=== PATIENT | female | born 2005 | race Caucasian/White ===

== ENCOUNTER 2025-04-07 13:04 | Emergency (ER) | payer SELFPAY ==
[2025-04-07 13:12] VITALS: BP 108/65
[2025-04-07 13:40] LABS: Hematocrit 38.8 % (37.0-47.0); Hemoglobin 13.8 g/dL (12.0-16.0); Mean Corp Hgb Conc. 35.6 g/dL (33.0-37.0); Mean Corpuscular Volume 88.8 fL (81.0-99.0); Nucleated Red Blood Cells % 0 %; Platelet Count 289 10^3/uL (130-400); Red Cell Dist. Width 12.2 % (11.5-14.5)
[2025-04-07 13:55] LABS: ALT (SGPT) 14 U/L (0-35); AST (SGOT) 19 U/L (14-36); Albumin 4.9 g/dl (3.5-5.0); Alkaline Phosphatase 58 U/L (38-126); Blood Urea Nitrogen 15 mg/dl (7-17); Calcium 10.2 mg/dl (8.4-10.2); Carbon Dioxide 22 mmol/L (22-30); Chloride 106 mmol/L (98-107); Glucose 110 mg/dl (70-99); Lipase 68 U/L (23-300); Potassium 3.9 mmol/L (3.5-5.1); Sodium 138 mmol/L (135-145); Total Protein 8.6 g/dl (6.3-8.2); eGFR > 60.00
[2025-04-07 13:56] LABS: HCG, Serum Qualitative Screen Negative
[2025-04-07 17:20] VITALS: BP 118/79
--- NOTE | 2025-04-07 19:21 | ED.GENMED ---
History of Present Illness
General
Chief Complaint: Abdominal Pain
Time Seen by Provider: 04/07/25 16:41
History of Present Illness
History of Present Illness:
19-year-old female presents to the emergency department for evaluation of periumbilical abdominal pain that began earlier in the day and caused severe pain resulting in a syncopal event with vomiting and diarrhea. She states that she gets these
pain episodes on a frequent basis nearly once a week without clear provoking or palliating factors. Started contraceptives which is also not providing. No obvious provoking or palliating foods. No fevers or chills. No prior abdominal surgical
history. Denies cannabis use
Review of Systems
Review of Systems
Allergies reviewed?: Yes
All Other Systems: ROS reviewed and negative except as documented in HPI and ROS
Phy Exam
Physical Exam
Physical Exam:
GEN: Well appearing, NAD, WDWN
HEENT: Oral mucosa moist, no scleral icterus
Cardiac: Regular rate
Lung: No respiratory distress, no tachypnea
Abdomen: Soft, moderate left lower quadrant and suprapubic tenderness, no rigidity
MSK: No gross deformity or injuries
Skin: Good color, no pallor or jaundice, no rashes
Neuro: AO x3, moves all extremities freely
Psych: Calm, cooperative
Course
Orders/Labs/Results
Orders:
Orders
04/07/25 13:16
Electrocardiogram (*1) Urgent
Reason for Study: Vertigo / Dizzy
EKG- Treatment ONCE
Test Result ONCE
04/07/25 13:27
Complete Blood Count/With Diff Urgent
Comprehensive Metabolic Panel Urgent
HCG, Serum Qualitative Screen Urgent
Lipase Urgent
04/07/25 17:02
US Pelvis Only (non-obstetric) Urgent
Reason For Exam: lower abd pain/syncope
Abnormal Lab Results
04/07/25
13:27
WBC 15.6 H 10^3/uL
(4.8-10.8)
MCH 31.6 H pg
(27.0-31.0)
Abs Immat Gran (auto) 0.1 H 10^3/uL
(0-0.05)
Absolute Neuts (auto) 13.4 H 10^3/uL
(1.4-6.5)
Absolute Lymphs (auto) 1.0 L 10^3/uL
(1.2-3.4)
Absolute Monos (auto) 1.0 H 10^3/uL
(0.1-0.6)
Neutrophils % 86.2 H %
(42.2-75.2)
Lymphocytes % 6.2 L %
(20.5-51.1)
Glucose 110 H mg/dl
(70-99)
Total Protein 8.6 H g/dl
(6.3-8.2)
04/07/25 13:27
04/07/25 13:27
Vital Signs
Initial and Last Documented VS:
Initial Vital Signs
Temp Pulse Resp BP Pulse Ox
98.8 F 69 18 108/65 98
04/07/25 13:12 04/07/25 13:12 04/07/25 13:12 04/07/25 13:12 04/07/25 13:12
Last Documented Vital Signs
Temp Pulse Resp BP Pulse Ox
98.8 F 70 13 118/79 97
04/07/25 13:12 04/07/25 17:20 04/07/25 17:20 04/07/25 17:20 04/07/25 19:22
MDM/Problems Addressed
MDM/Problems Addressed:
Patient's labs unremarkable, due to lower abdominal pain on exam and syncopal event the patient was sent for ultrasound to rule out ruptured ovarian cyst or ovarian torsion and this was reassuring. Given the frequent recurrence of her symptoms this
could represent an abdominal migraine, doubt vascular pathology such as MALS given the lack of clear provoking factors. Will recommend outpatient GI follow-up
*Pulse Oximetry
SaO2: 97
Oxygen Mode of Delivery: Room air
Patient hypoxic: no
*Critical Care Note
Total Time (30-74mins, 75-104mins- exclusive of procedures): Not Applicable
ED Attending Note
-
Portions of this chart may have been created with voice recognition software.� Occasional wrong word or��sound alike� substitutions may have occurred due to the inherent limitations of voice recognition software.
Discharge Plan
Departure
Patient Disposition: Home (Routine Discharge)
Date of Disposition: 04/07/25
Time of Disposition: 19:22
Patient with high blood pressure during this ER visit?: No
Discharge Problem:
Recurrent abdominal pain
Instructions: Abdominal Pain
Referrals:
April Williamson MD [Active, Gastroenterology]
Interventions
Interventions:
*Risk Screen - Suicide Last Done: 04/07/25 13:12
*General Assessment Last Done: 04/07/25 13:12
*Nursing Disposition Last Done: 04/07/25 19:32
DA-Kxfhrj-Wlsjqeerjd Assessment Last Done: 04/07/25 16:45
Discharge Date and Time
Discharge Date/Time: 04/07/25 19:33
Print Language: NAURUAN
== END 2025-04-07 19:33 | disposition home or self-care (01) ==
LOC: EMR 13:04
PROVIDERS: Student in an Organized Health Care Education/Training Program; EMERGENCY PHYSICIAN Emergency Medicine
DX: R55 Syncope and collapse (principal); R10.33 Periumbilical pain; R11.10 Vomiting, unspecified; R19.7 Diarrhea, unspecified; R10.32 Left lower quadrant pain
CPT/HCPCS: 99284; 76856; 80053; 83690; 84703; 85025; 93005